=== PATIENT | male | born 1930 | race Caucasian/White ===

== ENCOUNTER 2016-12-19 11:53 | Inpatient (IN) | payer OTHER, MEDICARE ==
--- NOTE | 2016-12-19 12:10 | CPEKG ---
Heart Rate: 65 RR Interval: 923 QRSD Interval: 86 QT Interval: 468 QTC Interval: 487 QRS [place]: 137 T Wave [place]: -18 EKG Severity - ABNORMAL ECG - EKG Impression: ATRIAL FIBRILLATION EKG Impression: LEFT POSTERIOR FASCICULAR BLOCK EKG Impression: ABNORMAL T, CONSIDER ISCHEMIA, INFERIOR LEADS Electronically Signed By: Blake Flores 24-Dec-2016 09:07:12
[2016-12-19] MEDS ORDERED: ASPIRIN 81 MG CHEWABLE TAB PO ONE (12:17)
--- NOTE | 2016-12-19 12:23 | UCPHY ---
H & P Time Seen by Provider: 12/19/16 12:13 Patient Type: New HPI/ROS: CHIEF COMPLAINT: Shortness of breath HISTORY OF PRESENT ILLNESS: Patient is an 86-year-old female with a history of hypertension, diabetes type 2 atrial fibrillation on Coumadin who presents to the emergency department with increasing shortness of breath. Patient states that he has been off of his Coumadin for the past week because he ran out of his prescription. He was having his INR drawn today informed and he had shortness of breath. They sent him to urgent care. The patient states that shortness of breath the past few days. Is mildly worse with ambulation. He denies any chest pain. No new leg pain or swelling. No fevers or chills. No cough. Patient normally takes Coumadin 9 mg p. o. twice daily. REVIEW OF SYSTEMS: My complete review of systems is negative except as mentioned in the HPI. Past Medical/Surgical History: Includes diabetes type 2, atrial fibrillation, Staph, STEPHY PSH: Multiple back surgeries Smoking Status: Never smoked Physical Exam: Vitals noted GENERAL: Well-appearing, in no acute distress, alert. HEENT: Eyes normal to inspection, normal pharynx, no signs of dehydration. NECK: No thyromegaly, no lymphadenopathy, supple. RESPIRATORY: Clear to auscultation bilaterally, no rales, rhonchi or wheezing. CVS: Irregularly irregular, no rubs, murmurs, or gallops. ABDOMEN: Soft, nontender, nondistended, no organomegaly. BACK: Normal to inspection, no CVA tenderness. SKIN: Normal color, no rash, warm, dry. No pallor. Lower extremity skin stasis changes EXTREMITIES: No pedal edema, no calf tenderness, no Homans sign or cords, no joint swelling. NEURO/PSYCH: Alert and oriented x3, normal mood and affect, normal motor sensory exam. No obvious cranial nerve deficit. Constitutional: Initial Vital Signs Temperature (C) 36.7 C 12/19/16 11:59 Heart Rate 70 12/19/16 11:59 Respiratory Rate 16 12/19/16 11:59 Blood Pressure 121/64 H 12/19/16 11:59 O2 Sat (%) 94 12/19/16 11:59 O2 Delivery Mode Nasal Cannula O2 (L/minute) 2 Allergies/Adverse Reactions: ketorolac tromethamine [From Toradol] Allergy (Severe, Verified 12/19/16 11:58) Vomiting morphine Allergy (Severe, Verified 12/19/16 11:58) Vomiting Home Medications: Medication Instructions Recorded Acetaminophen [Tylenol XS 500mg] 1,000 mg PO Q6PRN PRN 05/25/11 Atorvastatin Calcium [Lipitor 10 10 mg PO DAILY 05/25/11 mg] CELECOXIB [Celebrex] 200 mg PO DAILY 05/25/11 Ferrous Sulfate 325 mg PO 05/25/11 Glucosamine HCl [GLUCOSAMINE HCL] 1,500 mg PO DAILY 05/25/11 Hydrochlorothiazide [HCTZ (*)] 25 mg PO DAILY 05/25/11 Metoprolol Tartrate [Lopressor] 50 mg PO BID 05/25/11 PIOGLITAZONE HCL [Actos] 45 mg PO DAILY 05/25/11 WARFARIN SODIUM [Coumadin] 5 mg PO DAILY 05/25/11 metFORMIN HCL [Glucophage 500 mg 500 mg PO BID 05/25/11 (*)] oxyCODONE/APAP 5/325 [Percocet 1 tab PO Q4H PRN 05/25/11 5/325] Medical Decision Making - Diagnostics Imaging Results: Imaging Impressions Chest X-Ray 12/19/16 12:17 Impression: 1. Findings consistent with congestive heart failure are noted superimposed upon presumed underlying COPD. 2. See above report for additional findings.. ED Course/Re-evaluation: In urgent care I met the patient on arrival. Answered all his questions. I discussed the plan. Patient had laboratory studies EKG and chest x-ray ordered. IV the patient's previous medical record. EKG: Atrial fibrillation. Normal axis. Left posterior fascicular block. I reviewed the patient's laboratory studies. He had numerous abnormalities. His D-dimer was elevated at 0.89. His creatinine was elevated 1.6. His troponin was elevated at 0.59. His creatinine is mildly elevated at 1.6[place] [address] I discussed the results with the patient. Answered all his questions. I discussed the case with the hospitalist service. Dr. Geller will admit. Patient will be transferred to [facility]. I discussed the elevated D-dimer. With mild elevated creatinine I was reticent to order a CT angiogram. I discussed this with the hospitalist service. Patient will be further evaluated at the [facility]. Ambulance company was contacted for transfer. Differential Diagnosis: My differential includes but is not limited to ACS, acute SC, DVT, PE, dissection, aneurysm, dehydration, electrolyte abnormality, sugar abnormality, CHF - Data Points Laboratory Results: Laboratory Results 12/19/16 12:25 12/19/16 12:25 12/19/16 12/19/16 12/19/16 12:25 12:25 12:25 WBC 5.36 10^3/uL 10^3/uL (3.80-9.50) RBC 3.27 10^6/uL L 10^6/uL (4.40-6.38) Hgb 10.8 g/dL L g/dL (13.7-17.5) Hct 33.5 % L % (40.0-51.0) MCV 102.4 fL H fL (81.5-99.8) MCH 33.0 pg pg (27.9-34.1) MCHC 32.2 g/dL L g/dL (32.4-36.7) RDW 15.9 % H % (11.5-15.2) Plt Count 182 10^3/uL 10^3/uL (150-400) MPV 9.3 fL fL (8.7-11.7) Neut % (Auto) 76.9 % H % (39.3-74.2) Lymph % (Auto) 12.7 % L % (15.0-45.0) [place] % (Auto) 8.0 % % (4.5-13.0) Eos % (Auto) 1.3 % % (0.6-7.6) Baso % (Auto) 0.7 % % (0.3-1.7) Nucleat RBC Rel Count 0.0 % % (0.0-0.2) Absolute Neuts (auto) 4.12 10^3/uL 10^3/uL (1.70-6.50) Absolute Lymphs (auto) 0.68 10^3/uL L 10^3/uL (1.00-3.00) Absolute Monos (auto) 0.43 10^3/uL 10^3/uL (0.30-0.80) Absolute Eos (auto) 0.07 10^3/uL 10^3/uL (0.03-0.40) Absolute Basos (auto) 0.04 10^3/uL 10^3/uL (0.02-0.10) Absolute Nucleated RBC 0.00 10^3/uL 10^3/uL (0-0.01) Immature Gran % 0.4 % % (0.0-1.1) Immature Gran # 0.02 10^3/uL 10^3/uL (0.00-0.10) PT 23.4 SEC H SEC (12.0-15.0) INR 2.11 H (0.83-1.16) APTT 35.1 SEC SEC (23.0-38.0) D-Dimer 0.89 ug/mLFEU H ug/mLFEU (0.00-0.50) Sodium 139 mEq/L mEq/L (134-144) Potassium 5.4 mEq/L H mEq/L (3.5-5.2) Chloride 102 mEq/L mEq/L (97-110) Carbon Dioxide 21 mEq/l L mEq/l (22-31) Anion Gap 16 mEq/L mEq/L (8-16) BUN 45 mg/dL H mg/dL (7-23) Creatinine 1.6 mg/dL H mg/dL (0.7-1.3) Estimated GFR 41 Glucose 114 mg/dL H mg/dL (70-100) Calcium 9.6 mg/dL mg/dL (8.5-10.4) Troponin I 0.053 ng/mL H ng/mL (0-0.034) NT-Pro-B Natriuret Pep 62728 pg/mL H pg/mL (0-450) Medications Given: Discontinued Medications Aspirin (Aspirin) 324 mg PO EDNOW ONE Stop: 12/19/16 12:18 Last Admin: 12/19/16 12:40 Dose: 324 mg Departure - Departure Disposition: [facility] Inpatient Acute Clinical Impression: Elevated troponin, Renal insufficiency Dyspnea Qualifiers: Dyspnea type: shortness of breath Qualified Code(s): R06.02 - Shortness of breath CHF (congestive heart failure) Qualifiers: Congestive heart failure type: unspecified congestive heart failure type Congestive heart failure chronicity: acute Qualified Code(s): I50.9 - Heart failure, unspecified Condition: Good Referrals: Mor Clements MD [Primary Care Provider] - As per Instructions - PQRS PQRS Measurement: 134: Depression screening and followup, PRIME MD-PHQ2 (12 years and older) Over the last 2 weeks, how often have you been bothered by any of the following problems? 1. Feeling down, depressed, or hopeless? 2. Little interest or pleasure in doing things? Patient answered no to both 1 and 2 130: Documentation of medications. Reviewed all patient medications, doses, route and frequency. Unable to obtain meds due to patient did not know. 226: Do you smoke? No. 47: 65 and older: Advanced care planning. Patient designates surrogate decision maker as parent spouse . Patient refused. 51: 18 years old and older with diagnosis of COPD, spirometry performance. Patient has no history of COPD 52: 18 years old and older with COPD and symptoms of COPD or FEV1<60% predicted prescribed a B Agonist. Spirometry not performed; equipment not available.
[2016-12-19 12:30] LABS: % IMMATURE GRANULYOCYTES 0.4 % (0.0-1.1); ABSOLUTE IMMATURE GRANULOCYTES 0.02 10^3/uL (0.00-0.10); ADD DIFF? NO; ADD MORPH? NO; ADD SCAN? NO; ATYPICAL LYMPHOCYTE FLAG 10 (0-99); FRAGMENT RBC FLAG 0 (0-99); HEMATOCRIT 33.5 % (40.0-51.0); HEMOGLOBIN 10.8 g/dL (13.7-17.5); LEFT SHIFT FLG 0 (0-99); LIPEMIA HEMOLYSIS FLAG 80 (0-99); MEAN CELL HEMOGLOBIN CONCENTR. 32.2 g/dL (32.4-36.7); MEAN CELL VOLUME 102.4 fL (81.5-99.8); MEAN PLATELET VOLUME 9.3 fL (8.7-11.7); PLATELET CLUMPS FLAG 0 (0-99); PLATELET COUNT 182 10^3/uL (150-400); RED BLOOD CELL COUNT 3.27 10^6/uL (4.40-6.38); RED CELL DISTRIBUTION WIDTH 15.9 % (11.5-15.2)
[2016-12-19 12:42] LABS: APTT 35.1 SEC (23.0-38.0); INR 2.11 (0.83-1.16); PROTIME(PATIENT) 23.4 SEC (12.0-15.0)
[2016-12-19 12:44] LABS: ANION GAP 16 mEq/L (8-16); CALCIUM 9.6 mg/dL (8.5-10.4); CARBON DIOXIDE 21 mEq/l (22-31); CHLORIDE 102 mEq/L (97-110); CREATININE 1.6 mg/dL (0.7-1.3); GLOMERULAR FILTRATION RATE 41; GLUCOSE 114 mg/dL (70-100); POTASSIUM 5.4 mEq/L (3.5-5.2); SODIUM 139 mEq/L (134-144)
[2016-12-19 13:03] LABS: TROPONIN I 0.053 ng/mL (0-0.034)
[2016-12-19] MEDS ORDERED: ACETAMINOPHEN 325 MG TAB PO PRN (16:32)
[2016-12-19] MEDS ORDERED: ONDANSETRON 4 MG/2 ML VIAL IVP PRN (16:32)
[2016-12-19] MEDS ORDERED: oxyCODONE IR 5 MG TAB PO PRN (16:32)
[2016-12-19] MEDS ORDERED: ALBUTEROL 3 ML DEYVIAL IH PRN (16:32)
[2016-12-19] MEDS ORDERED: ONDANSETRON DISINTEGRATING 4 MG TAB PO PRN (16:32)
[2016-12-19] MEDS ORDERED: D50W 25 GM/50 ML SYR IVP PRN (16:37)
[2016-12-19] MEDS ORDERED: FUROSEMIDE 40 MG/4 ML VIAL IVP ONE (17:27)
[2016-12-19] MEDS ORDERED: WARFARIN SODIUM 3 MG TAB PO ONE (17:30)
[2016-12-19 19:14] LABS: COLOR YELLOW; LEUKOCYTE ESTERASE,URINE NEGATIVE (NEGATIVE); NITRITE,URINE NEGATIVE (NEGATIVE)
--- NOTE | 2016-12-19 19:25 | GHP ---
[f rep st] HISTORY AND PHYSICAL DATE OF ADMISSION: 12/19/2016 CHIEF COMPLAINT: Shortness of breath. HISTORY: This is an 86-year-old man with past medical history of diabetes, pulmonary fibrosis, atrial fibrillation, who presents with worsening shortness of breath and generalized weakness for about the last 3 months that has gotten significantly worse over the last week. The patient denies any significant chest pain associated with this, but he does note that his legs and abdomen seem more swollen. He has had issues with chronic lower extremity edema that he has been on Lasix for but ran out of Lasix for a little over a week ago and has not taken it since then. He has noticed that he gets very short of breath with any kind of exertion for the last several months but especially over the last week. He always has some hypoxia at night and has been continuing to use nocturnal oxygen, but denies being woken with shortness of breath. PAST MEDICAL HISTORY: 1. Type 2 diabetes. 2. Hypertension. 3. 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 4. Osteoarthritis. 5. STEPHY just on oxygen at night. 6. Atrial fibrillation. 7. Chronic kidney disease with baseline creatinine of 1.6. PAST SURGICAL HISTORY: 1. The patient has had multiple knee surgeries. 2. Appendectomy. 3. Back surgery x4. 4. Prostatectomy. 5. Left ankle fusion. 6. Left total knee. 7. Carpal tunnel surgery. SOCIAL HISTORY: Patient is a never smoker. He is . He is accompanied by his daughter and . He previously worked in construction. FAMILY HISTORY: Parents are . REVIEW OF SYSTEMS: 10-point review of systems obtained negative except as per HPI. HOME MEDICATIONS: 1. Lasix. 2. Warfarin. 3. Cyanocobalamin. 4. Warfarin. 5. Doxycycline. 6. Tamsulosin. 7. Metoprolol. 8. Levothyroxine. 9. Metformin. 10. Ferrous sulfate. 11. Atorvastatin. 12. Tylenol. ALLERGIES: Ketorolac and morphine. PHYSICAL EXAM: VITAL SIGNS: BP 151/85, heart rate 63, respiratory rate 19, O2 sats 99% on 3 L, temperature 36.6. GENERAL APPEARANCE: An elderly man. He is awake and alert. He is in no acute distress. EYES: Anicteric. HENT: Oropharynx clear. JVD is elevated. CARDIOVASCULAR: Irregularly irregular with a rate in the 60s. No murmurs, rubs, or gallops. PULMONARY: Bibasilar crackles, otherwise, normal work of breathing. ABDOMEN: Soft, nontender, mildly distended. EXTREMITIES: 1+ pitting edema bilateral lower extremities with chronic venous stasis changes. SKIN: Warm, dry, well perfused. NEURO/PSYCH: Oriented, appropriate, pleasant. CLINICAL DATA: Labs reviewed. Significant for white blood cell count 5.36, hematocrit of 33.5, with MCV of 102.4. INR is 2.1. D-dimer is 0.89. Chemistry notable for a creatinine of 1.6. Glucose of 114. Troponin is 0.053, proBNP 23006. Chest x-ray personally reviewed and interpreted shows cardiomegaly, bilateral bibasilar opacities consistent with pleural effusion and pulmonary edema. EKG personally reviewed and interpreted shows AFib and inferior T-wave inversions. Rate is in the 60s. ASSESSMENT AND PLAN: 86-year-old man presenting with shortness of breath in the setting of being off Lasix for a week with presumed decompensated heart failure. 1. Decompensated congestive heart failure. The patient has not had an echo since 2012 that I can find, at that time he had a normal ejection fraction and no comment of diastolic dysfunction. At this time he does have both lower extremity edema and pulmonary edema in the setting of being off Lasix for a week consistent with decompensated, likely diastolic, heart failure. Will start IV Lasix, monitor intake and output and daily weights. Cardiology has been consulted. His BNP is quite elevated, though I do not have a prior baseline. In terms of etiology of his congestive heart failure, suspect that it is related to being off his medications, but will trend serial troponins, monitor on telemetry, and obtain echocardiogram in the morning as well as check TSH and UA. 2. Elevated troponin. In the setting of above, I suspect this is more likely demand rather than acute coronary syndrome given the absence of chest pain or concerning ecg changes, but will trend troponins and monitor on telemetry as well as eval for new wall motion abnormality on echo 3. Chronic atrial fibrillation. INR is currently therapeutic. He is rate controlled on metoprolol. We will continue Coumadin and metoprolol. 4. Chronic kidney disease. This seems to be at baseline. 5. Diabetes. He is on metformin as an outpatient, which is likely unsafe given his degree of renal dysfunction. This will be discontinued and started on a sliding scale. Given the patient's renal function has remained at this level for quite some time, I do not think he should be resumed on metformin at discharge. 6. Hypoxia. The patient is 99% on 3 L. We can likely wean this down. At baseline he is on oxygen only at night related to STEPHY. 7. Obstructive sleep apnea. Continue nocturnal oxygen. 8. History of pulmonary fibrosis. This has been followed by Dr. Self of Pulmonology and has been stable. 9. Macrocytic anemia. Continue his vitamin B12. DISPOSITION: Observation status. Suspect he will need less than 48 hours stay for evaluation and management of decompensated heart failure though he may require a longer stay depending on his response to Lasix. Patient is new to my care. Old records reviewed, summarized as per HPI and past medical history. Further history obtained from patient's and daughter present at bedside. Care plan reviewed with ER physician including plans for diuresis. /[id number]/MODL MTDD
[2016-12-19 20:10] LABS: TROPONIN I 0.054 ng/mL (0-0.034)
[2016-12-19] MEDS: INSULIN LISPRO 100 UNIT/ML SC SCH (20:11)
[2016-12-19] MEDS: DOXYCYCLINE HYCLATE 100 MG CAP/TAB PO SCH (20:41)
[2016-12-19] MEDS: ACETAMINOPHEN 500 MG TAB PO SCH (20:41)
[2016-12-19] MEDS: METOPROLOL TARTRATE 100 MG TAB PO SCH (20:42)
[2016-12-19] MEDS: FERROUS SULFATE 325 MG TAB PO SCH (20:42)
[2016-12-20 04:33] LABS: % IMMATURE GRANULYOCYTES 0.3 % (0.0-1.1); ABSOLUTE IMMATURE GRANULOCYTES 0.01 10^3/uL (0.00-0.10); ADD DIFF? NO; ADD MORPH? NO; ADD SCAN? NO; ATYPICAL LYMPHOCYTE FLAG 0 (0-99); FRAGMENT RBC FLAG 0 (0-99); HEMATOCRIT 30.1 % (40.0-51.0); HEMOGLOBIN 9.6 g/dL (13.7-17.5); LEFT SHIFT FLG 0 (0-99); LIPEMIA HEMOLYSIS FLAG 80 (0-99); MEAN CELL HEMOGLOBIN 32.9 pg (27.9-34.1); MEAN CELL HEMOGLOBIN CONCENTR. 31.9 g/dL (32.4-36.7); MEAN CELL VOLUME 103.1 fL (81.5-99.8); MEAN PLATELET VOLUME 9.8 fL (8.7-11.7); PLATELET CLUMPS FLAG 10 (0-99); PLATELET COUNT 142 10^3/uL (150-400); RED BLOOD CELL COUNT 2.92 10^6/uL (4.40-6.38); RED CELL DISTRIBUTION WIDTH 15.6 % (11.5-15.2)
[2016-12-20 04:53] LABS: ANION GAP 9 mEq/L (8-16); CALCIUM 9.7 mg/dL (8.5-10.4); CARBON DIOXIDE 23 mEq/l (22-31); CHLORIDE 106 mEq/L (97-110); CREATININE 1.6 mg/dL (0.7-1.3); GLOMERULAR FILTRATION RATE 41; GLUCOSE 110 mg/dL (70-100); MAGNESIUM 2.2 mg/dL (1.6-2.3); POTASSIUM 4.9 mEq/L (3.5-5.2); SODIUM 138 mEq/L (134-144)
--- NOTE | 2016-12-20 08:43 | PDCARCONS ---
Cardiology Consult Reason for Consult: Congestive heart failure Chief Complaint: shortness of breath and pedal edema Requesting Physician: Dr. Noemy Geller History of Present Illness: 86-year-old male, usually followed by Dr. Kash Clements for primary care and Dr. Shashank Dickinson for cardiology. He was in his usual state of health for the last week . He did not take his Lasix for 1 week because his mail order pharmacy did not send to him on time according to him. He presented with gradually worsening shortness of breath and pedal edema. He states that in July of 2016 his Lasix dose was decreased and since then he had been slightly more short of breath than usual. He denies any chest pain . He tells me that he has had a coronary angiogram at [facility] within the last 5 years that was normal. He has not had a syncopal episode. History Information - Allergies/Home Medication List Allergies/Adverse Reactions: ketorolac tromethamine [From Toradol] Allergy (Severe, Verified 12/19/16 11:58) Vomiting morphine Allergy (Severe, Verified 12/19/16 11:58) Vomiting Home Medications: Acetaminophen [Tylenol ES 500 mg (*)] 1,000 mg PO HS 12/19/16 [Last Taken ] Atorvastatin Calcium [Lipitor 10 mg (*)] 10 mg PO DAILY 12/19/16 [Last Taken ] Cyanocobalamin [Vitamin B12 (*)] 1,000 mcg PO DAILY 12/19/16 [Last Taken Unknown ] Doxycycline Hyclate [Vibramycin 100 MG (*)] 100 mg PO BID 12/19/16 [Last Taken 12/19/16] Ferrous Sulfate [Ferrous Sulf 325 MG (*)] 325 mg PO HS 12/19/16 [Last Taken ] Furosemide [Lasix 20 MG (*)] 60 mg PO BIDDIUR 12/19/16 [Last Taken 12/19/16] Herbals/Supplements -Info Only 1 ea PO DAILY 12/19/16 [Last Taken Unknown] Levothyroxine [Synthroid 25 mcg (*)] 25 mcg PO DAILY 12/19/16 [Last Taken Unknown] Metoprolol Tartrate [Lopressor 100 mg (*)] 100 mg PO BID 12/19/16 [Last Taken ] Tamsulosin HCl [Flomax 0.4 MG (*)] 0.4 mg PO DAILY 12/19/16 [Last Taken 12/19/16 ] Warfarin Sodium [Coumadin 3MG (*)] 3 mg PO SUTUTHFRSA@2100 12/19/16 [Last Taken 12/19/16] Warfarin Sodium [Coumadin 3MG (*)] 6 mg PO MOWE@2100 12/19/16 [Last Taken ] metFORMIN HCL [Metformin HCl] 1,000 mg PO BIDMEAL 12/19/16 [Last Taken 12/19/16] I have personally reviewed and updated: medical history - Past Medical History atrial fibrillation, diabetes type 2, hypertension, hyperlipidemia Additional medical history: pulmonary fibrosis related to asbestos exposure. renal insufficiency - Surgical History Reports: cholecystectomy Additional surgical history: Ankle repair. Appendectomy. Back surgery. Cholecystectomy. Colon Polypectomy 05/2009, 2011 Tubular adenoma. Five year follow-up recommended. Dilatation of Schatzki's Ring. EGD 2011 Esophageal ulcer. Melanoma Excision -- on back. Transurethral resection of the prostate 2004 - Social History Smoking Status: Never smoked Physical Exam Temp Pulse Resp BP Pulse Ox 36.9 C 61 16 132/86 H 97 12/20/16 07:22 12/20/16 07:22 12/20/16 07:22 12/20/16 07:22 12/20/16 07:22 O2 (L/minute) 3 Constitutional: no apparent distress Eyes: PERRL, EOMI Cardiovascular: irregularly irregular Respiratory: no respiratory distress, reduced air movement Gastrointestinal: soft, non-tender abdomen Skin: warm Neurologic: AAOx3 Psychiatric: interacting appropriately, not anxious Lab and Imaging 12/20/16 03:44 12/20/16 03:44 WBC 3.81 10^3/uL (3.80-9.50) 12/20/16 03:44 RBC 2.92 10^6/uL (4.40-6.38) L 12/20/16 03:44 Hgb 9.6 g/dL (13.7-17.5) L 12/20/16 03:44 Hct 30.1 % (40.0-51.0) L 12/20/16 03:44 MCV 103.1 fL (81.5-99.8) H 12/20/16 03:44 MCH 32.9 pg (27.9-34.1) 12/20/16 03:44 MCHC 31.9 g/dL (32.4-36.7) L 12/20/16 03:44 RDW 15.6 % (11.5-15.2) H 12/20/16 03:44 Plt Count 142 10^3/uL (150-400) L 12/20/16 03:44 MPV 9.8 fL (8.7-11.7) 12/20/16 03:44 Neut % (Auto) 62.4 % (39.3-74.2) 12/20/16 03:44 Lymph % (Auto) 20.5 % (15.0-45.0) 12/20/16 03:44 [place] % (Auto) 13.9 % (4.5-13.0) H 12/20/16 03:44 Eos % (Auto) 2.1 % (0.6-7.6) 12/20/16 03:44 Baso % (Auto) 0.8 % (0.3-1.7) 12/20/16 03:44 Nucleat RBC Rel Count 0.0 % (0.0-0.2) 12/20/16 03:44 Absolute Neuts (auto) 2.38 10^3/uL (1.70-6.50) 12/20/16 03:44 Absolute Lymphs (auto) 0.78 10^3/uL (1.00-3.00) L 12/20/16 03:44 Absolute Monos (auto) 0.53 10^3/uL (0.30-0.80) 12/20/16 03:44 Absolute Eos (auto) 0.08 10^3/uL (0.03-0.40) 12/20/16 03:44 Absolute Basos (auto) 0.03 10^3/uL (0.02-0.10) 12/20/16 03:44 Absolute Nucleated RBC 0.00 10^3/uL (0-0.01) 12/20/16 03:44 Immature Gran % 0.3 % (0.0-1.1) 12/20/16 03:44 Immature Gran # 0.01 10^3/uL (0.00-0.10) 12/20/16 03:44 PT 23.4 SEC (12.0-15.0) H 12/19/16 12:25 INR 2.11 (0.83-1.16) H 12/19/16 12:25 APTT 35.1 SEC (23.0-38.0) 12/19/16 12:25 D-Dimer 0.89 ug/mLFEU (0.00-0.50) H 12/19/16 12:25 Sodium 138 mEq/L (134-144) 12/20/16 03:44 Potassium 4.9 mEq/L (3.5-5.2) 12/20/16 03:44 Chloride 106 mEq/L (97-110) 12/20/16 03:44 Carbon Dioxide 23 mEq/l (22-31) 12/20/16 03:44 Anion Gap 9 mEq/L (8-16) 12/20/16 03:44 BUN 50 mg/dL (7-23) H 12/20/16 03:44 Creatinine 1.6 mg/dL (0.7-1.3) H 12/20/16 03:44 Estimated GFR 41 12/20/16 03:44 Glucose 110 mg/dL (70-100) H 12/20/16 03:44 Calcium 9.7 mg/dL (8.5-10.4) 12/20/16 03:44 Phosphorus 4.5 mg/dL (2.5-4.5) 12/20/16 03:44 Magnesium 2.2 mg/dL (1.6-2.3) 12/20/16 03:44 Troponin I 0.057 ng/mL (0-0.034) H 12/19/16 23:15 NT-Pro-B Natriuret Pep 09464 pg/mL (0-450) H 12/19/16 12:25 TSH 3.360 uIU/mL (0.465-4.680) 12/19/16 18:35 Urine Color YELLOW 12/19/16 18:34 Urine Appearance CLEAR 12/19/16 18:34 Urine pH 5.0 (5.0-7.5) 12/19/16 18:34 Ur Specific [place] 1.011 (1.002-1.030) 12/19/16 18:34 Urine Protein NEGATIVE (NEGATIVE) 12/19/16 18:34 Urine Ketones NEGATIVE (NEGATIVE) 12/19/16 18:34 Urine Blood NEGATIVE (NEGATIVE) 12/19/16 18:34 Urine Nitrate NEGATIVE (NEGATIVE) 12/19/16 18:34 Urine Bilirubin NEGATIVE (NEGATIVE) 12/19/16 18:34 Urine Urobilinogen NEGATIVE EU (0.2-1.0) 12/19/16 18:34 Ur Leukocyte Esterase NEGATIVE (NEGATIVE) 12/19/16 18:34 Ur Culture Indicated? NOT INDICATED (NI) 12/19/16 18:34 Urine Glucose NEGATIVE (NEGATIVE) 12/19/16 18:34 Visualized and Interpreted Chest x-ray results: Yes Visualized and Interpreted EKG results: Yes EKG additional interpertation: atrial fibrillation with controlled ventricular response, no acute ST or T-wave changes suggestive of myocardial infarction. Telemetry: atrial fibrillation with ventricular pauses of to 2.2 seconds. A/P Assessment: 1. Atrial fibrillation 2. Congestive heart failure related to nonadherence with medications 3. Hypertension 4. Hyperlipidemia 5. Diabetes mellitus 6. renal insufficiency 7. pulmonary fibrosis related to asbestos exposure Plan: This is a very pleasant 86-year-old male usually followed by Dr. Clements and Dr. Shashank Dickinson (Cardiology [facility]). He is presenting with congestive heart failure symptoms related to not taking his Lasix for 1 week. He got intravenous Lasix yesterday and has had complete resolution of his pedal edema and significant improvement in his shortness of breath. Given his renal insufficiency we are going to stop his intravenous diuretics this morning is start him on his home dose of Lasix which is 60 mg p. o. twice daily. We will check an echocardiogram. Borderline elevation of troponin is related to renal insufficiency and congestive heart failure. He has no chest pain. EKGs do not suggest any acute ST or T-wave changes suggestive of myocardial infarction. No further troponin should be checked. No evaluation for coronary artery disease is necessary at this time, he tells me that he had a coronary angiogram in July of 2016 and we will obtain this record for review from [facility]. Thank you for consultation. We will sign off for now, please call us if there are any further questions.
[2016-12-20] MEDS ORDERED: FUROSEMIDE 40 MG/4 ML VIAL IVP SCH (09:00)
[2016-12-20] MEDS: INSULIN LISPRO 100 UNIT/ML SC SCH ×3 (09:03→17:15)
[2016-12-20] MEDS: FUROSEMIDE 20 MG TAB PO SCH ×2 (10:29→15:11)
[2016-12-20] MEDS: DOXYCYCLINE HYCLATE 100 MG CAP/TAB PO SCH ×2 (10:30→20:32)
[2016-12-20] MEDS: TAMSULOSIN HCL 0.4 MG CAP PO SCH (10:31)
[2016-12-20] MEDS: CYANO/VITAMIN B12 1000 MCG TAB PO SCH (10:31)
[2016-12-20] MEDS: ATORVASTATIN CALCIUM 10 MG TAB PO SCH (10:31)
[2016-12-20] MEDS: LEVOTHYROXINE 25 MCG TAB PO SCH (10:31)
[2016-12-20] MEDS: METOPROLOL TARTRATE 100 MG TAB PO SCH ×2 (10:31→20:31)
--- NOTE | 2016-12-20 10:46 | ECHO ---
[id number] + + [address] : : [place] [address] : : [phone] + + Adult Echocardiographic Report + -------+ :Name: HORACIO ADAMS LStudy Date: 12/20/2016 09:50 AM : : Hospital Admission Number: [id number] Locati on: 203: :: 1930 Gender: Male Height: 73 in : :Age: 86 yrs Race: WH,White Weight: 260 lb : :Reason For Study: CHF : : BSA: 2.4 meter s2 : + -------+ MMode/2D Measurements \T\ Calculations IVSd: 1.4 cm RVDd: 6.4 cm FS: 44.4 % LVOT diam: 2.1 cm LVPWd: 1.2 cm LVIDd: 4.2 cm EDV(Teich): LVOT area: LVIDs: 2.3 cm 77.4 ml 3.6 cm2 ESV(Teich): 18.5 ml EF(Teich): 76.1 % LVLd ap4: 7.8 cm SV(MOD-sp4): EDV(MOD-sp4): 48.0 ml 70.0 ml LVLs ap4: 6.8 cm ESV(MOD-sp4): 22.0 ml EF(MOD-sp4): 68.6 % Normal Measurement Values: + + :LVIDd (3.5-5.7cm) IVSd (0.6-1.1cm) LVPWd (0.6-1.1cm) Aortic Root (2.0-3.7cm)Left Atrium (1.5-4.0cm): :LV Vol(d) (76-115ml) LV Vol(s) (29-48ml) Ejec Fraction (50-65%)PV Abdulkadir (0.6- 1.2m/s) TV Abdulkadir (0.4-1.0m/s) : :MV E Abdulkadir (0.8-1.0m/s)MV A Abdulkadir (0.3-1.0m/s)LVOT Abdulkadir (0.7-1.2m/s) Asc Ao Abdulkadir ( 0.9-1.8m/s) : + + Doppler Measurements \T\ Calculations MV E max abdulkadir: MV V2 mean: Ao mean PG: LV V1 max: 122.8 cm/sec 67.0 cm/sec 4.4 mmHg 86.9 cm/sec MV dec time: MV mean PG: Ao V2 mean: LV V1 max P.18 sec 2.2 mmHg 99.7 cm/sec 3.0 mmHg MV V2 VTI: 25.5 cm Ao V2 VTI: 25.6 cm LV V1 mean PG: MVA(VTI): 2.7 cm2 JUANIS(I,D): 2.7 cm2 1.7 mmHg LV V1 mean: 60.5 cm/sec LV V1 VTI: 18.9 cm MR max abdulkadir: SV(LVOT): 68.4 ml TR max abdulkadir: 489.6 cm/sec 389.3 cm/sec MR max P.9 mmHg TR max P.6 mmHg RAP systole: 15.0 mmHg RVSP(TR): 75.6 mmHg Left Ventricle The left ventricle is normal in size. There is mild concentric left ventricular hypertrophy. Ejection Fraction = 67%. There is Doppler evidence for diastolic dysfunction. No regional wall motion abnormalities noted. Right Ventricle The right ventricle is moderately dilated. The right ventricular systolic function is mild to moderately reduced. Atria The left atrium is mildly dilated. The Left Atrial Volume is 39.4 ml/m2. The right atrium is severely dilated. The interatrial septum is intact with no evidence for an atrial septal defect. Mitral Valve The mitral valve is normal in structure and function. There is no mitral valve stenosis. There is trace to mild mitral regurgitation. Tricuspid Valve The tricuspid valve is normal in structure and function. There is no tricuspid stenosis. There is mild tricuspid regurgitation. Right ventricular systolic pressure is 75mmHg. There is Doppler evidence for severe pulmonary hypertension. Aortic Valve The aortic valve is not well visualized. There is no aortic stenosis. Trace aortic regurgitation. Pulmonic Valve The pulmonic valve is not well visualized. trace to mild pulmonic valvular regurgitation. Great Vessels The aortic root is not well visualized. Pericardium/Pleural There is no pericardial effusion. There is a fat pad seen. Conclusion A complete two-dimensional transthoracic echocardiogram was performed (2D, M-mode, Doppler and color flow Doppler). Limited Parasternal images due to difficulty breathing. There is mild concentric left ventricular hypertrophy. Ejection Fraction = 67%. There is Doppler evidence for diastolic dysfunction. The right ventricle is moderately dilated. The right atrium is severely dilated. There is mild tricuspid regurgitation. Right ventricular systolic pressure is 75mmHg. SEVERE PULMONARY HYPERTENSION. Final Reading Physician: Ben Carver MD electronically signed on 12/20/2016 10:45 AM Ordering Physician: Noemy Geller Performed By: Aaliyah Flores
--- NOTE | 2016-12-20 13:55 | HOSPPROG ---
Hospitalist Progress Note Assessment/Plan: # acute Diastolic heart failure- presumed secondary to medication noncompliance - oxygen saturations 95% on 3 L chest x-ray (personally reviewed and interpreted) shows pulmonary vascular congestion dyspnea is markedly improved today - echo pending - patient received IV Lasix overnight - will change to p.o. Lasix today # permanent atrial fibrillation- patient on chronic anticoagulation heart rates are stable - continue home meds # CKD - creatinine 1.6 this a.m.- at baseline renal function - continue home meds # indeterminate troponin- patient without chest pain complaints has had recent ischemic evaluation at outside hospital - no additional troponins risk stratification on this visit # prophylaxis on full-dose anticoagulation # diet cardiac # disposition greater than 2 midnights as patient requiring IV diuresis for acute diastolic heart failure I have discussed the case with Cardiology Dr. Carver we will transition patient to p. o. Lasix today and follow diuresis overnight Subjective: feeling better Objective: Vital Signs Temp Pulse Resp BP Pulse Ox 36.8 C 67 20 124/66 H 99 12/20/16 11:16 12/20/16 11:16 12/20/16 11:16 12/20/16 11:16 12/20/16 11:16 Laboratory Results 12/20/16 03:44 12/20/16 03:44 12/19/16 12/20/16 12/21/16 05:59 05:59 05:59 Intake Total 440 Output Total 930 600 Balance -490 -600 PT 23.4 SEC (12.0-15.0) H 12/19/16 12:25 INR 2.11 (0.83-1.16) H 12/19/16 12:25 - Physical Exam Constitutional: appears nourished Eyes: anicteric sclera Ears, Nose, Mouth, Throat: moist mucous membranes Cardiovascular: irregularly irregular Respiratory: no respiratory distress Gastrointestinal: normoactive bowel sounds, soft, non-tender abdomen Genitourinary: no bladder fullness Skin: warm, normal color Musculoskeletal: No asymmetric calves Neurologic: AAOx3 Psychiatric: interacting appropriately, not anxious Lymph, Heme, Immunologic: no cervical LAD ICD10 Worksheet Patient Problems: Problems Problem Status Onset CHF (congestive heart failure) Acute Dyspnea Acute Elevated troponin Acute Renal insufficiency Acute
[2016-12-20] MEDS ORDERED: WARFARIN SODIUM 3 MG TAB PO SCH ×2 (16:00→21:00)
[2016-12-20] MEDS: ACETAMINOPHEN 500 MG TAB PO SCH (20:31)
[2016-12-20] MEDS: FERROUS SULFATE 325 MG TAB PO SCH (20:32)
[2016-12-21 05:00] LABS: INR 2.2 (0.83-1.16); PROTIME(PATIENT) 24.6 SEC (12.0-15.0)
[2016-12-21 05:01] LABS: ANION GAP 10 mEq/L (8-16); CALCIUM 9.5 mg/dL (8.5-10.4); CARBON DIOXIDE 24 mEq/l (22-31); CHLORIDE 105 mEq/L (97-110); CREATININE 1.5 mg/dL (0.7-1.3); GLOMERULAR FILTRATION RATE 44; GLUCOSE 114 mg/dL (70-100); POTASSIUM 4.7 mEq/L (3.5-5.2); SODIUM 139 mEq/L (134-144)
[2016-12-21] MEDS: INSULIN LISPRO 100 UNIT/ML SC SCH ×2 (08:02→13:11)
[2016-12-21] MEDS: LEVOTHYROXINE 25 MCG TAB PO SCH (08:29)
[2016-12-21] MEDS: TAMSULOSIN HCL 0.4 MG CAP PO SCH (08:29)
[2016-12-21] MEDS: ATORVASTATIN CALCIUM 10 MG TAB PO SCH (08:29)
[2016-12-21] MEDS: FUROSEMIDE 20 MG TAB PO SCH (08:29)
[2016-12-21] MEDS: CYANO/VITAMIN B12 1000 MCG TAB PO SCH (08:29)
[2016-12-21] MEDS: METOPROLOL TARTRATE 100 MG TAB PO SCH (08:29)
[2016-12-21] MEDS: DOXYCYCLINE HYCLATE 100 MG CAP/TAB PO SCH (08:29)
[2016-12-21 11:43] VITALS: BP 120/64; PULSE 60; RESP 14; TEMP 98.8; O2SAT 96
--- NOTE | 2016-12-21 13:20 | PDCARPN ---
Cardiology Progress Note Chief Complaint: MR. Alvarado is feeling well this AM. He is back on his out patient dose of Lasix 60 mg po bid. He is neg 1.4 L today. Weight is down approximately 2 Kg over last 24 hours. He is stable for discharge home. Assessment/Plan: Assessment: 1. 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 SOB/BELLAMY and weight gain secondary to non compliance with lasix x one week Plan: -OK to return home on out patient dose of lasix 60 mg bid -Follow up with primary laboratory clerk, Dr. Dickinson 12/21/16 13:18 Reviewed/Discussed With: multidisciplinary team Objective: Vital Signs (8 Hrs) Temp Pulse Resp BP Pulse Ox 12/21/16 11:41 37.1 C 60 14 120/64 96 12/21/16 11:10 85 L 12/21/16 08:00 36.4 C 67 18 132/68 H 98 Intake/Output (24 Hrs) 12/20/16 12/21/16 12/22/16 05:59 05:59 05:59 Intake Total 650 Output Total 1550 Balance -900 Intake: Oral (ml) 650 Output: Urine (ml) 1550 Urinal 1550 Other: Weight 113.9 kg Number of Voids Urinal 2 Result Diagrams: 12/20/16 03:44 12/21/16 04:01 - Physical Exam Constitutional: WDWN, healthy appearing Neurologic: AAOx3, CN II-XII grossly intact Psychiatric: cooperative, interactive, following commands, not anxious ICD10 Worksheet Patient Problems: Problems Problem Status Onset CHF (congestive heart failure) Acute Dyspnea Acute Elevated troponin Acute Renal insufficiency Acute
--- NOTE | 2016-12-21 15:11 | GDS ---
[f rep st] DISCHARGE SUMMARY DISCHARGE DIAGNOSES: Include: 1. Acute diastolic heart failure secondary to medication noncompliance. 2. Acute hypoxic respiratory failure secondary to volume overload. 3. Persistent atrial fibrillation, on anticoagulation. 4. Chronic kidney disease. HISTORY OF PRESENT ILLNESS: This is an 86-year-old male who presents on 12/19/2016 with complaints of shortness of breath. For details of patient's initial presentation, please see the history and p hysical dated 12/19/2016. CONSULTATIVE SERVICES: Include Cardiology. PROCEDURES: On 12/20/2016, patient had a transthoracic echocardiogram that showed ejection fraction of 67% with Doppler evidence of diastolic dysfunction. No segmental wall motion abnormalities were appreciated. HOSPITAL COURSE BY ISSUE: 1. Acute diastolic heart failure. Patient was treated initially with IV Lasix with good diuretic r esponse. After his initial doses, the patient was transitioned to his home dosing of oral Lasix wit h near resolution of his dyspnea on exertion. The patient will be discharged on that same dose 60 m g p.o. b.i.d., to follow in the outpatient setting with his PCP and outpatient power plant supervisor. 2. Acute hypoxic respiratory failure secondary to volume overload. The patient did have confirmed pulmonary edema on chest x-ray imaging. Did have marked improvement in his symptoms during his hosp ital stay and IV diuresis. Again, will be discharging on his home oral dosing. He can follow with his outpatient primary care provider after discharge. 3. CKD. Patient's creatinine is 1.5 the day of his disposition, which is stable, at his baseline. MEDICATIONS: At the time of discharge, please reference medication reconciliation printed on 2016. PENDING STUDIES: At the time of this dictation are none. FOLLOWUP APPOINTMENTS: Include with Dr. Clements in 1-2 weeks' time for post disposition followu p, and with his outpatient power plant supervisor as needed on his normal ongoing schedule. I spent greater than 30 minutes in the planning and coordination of this discharge. /[id number]/MODL
== END 2016-12-21 15:15 | disposition home or self-care (01) | DRG 291 ==
LOC: CED 11:53 → INTOOBSV 13:20 → OBSVTOIN 13:20 → CEDHOLD 13:20 → F2W 15:37 → OBSVTOIN 12-20 14:36
PROVIDERS: ADMIT Internal Medicine; ATTEND Internal Medicine
DX: I50.31 Acute diastolic (congestive) heart failure (principal); J96.01 Acute respiratory failure with hypoxia; Z91.14 Patient's other noncompliance with medication regimen; I12.9 Hypertensive chronic kidney disease with stage 1 through stage 4 chronic kidney disease, or unspecified chronic kidney disease; E11.22 Type 2 diabetes mellitus with diabetic chronic kidney disease; N18.9 Chronic kidney disease, unspecified; I48.1 Persistent atrial fibrillation; J84.10 Pulmonary fibrosis, unspecified; G47.33 Obstructive sleep apnea (adult) (pediatric); D53.9 Nutritional anemia, unspecified; Z79.01 Long term (current) use of anticoagulants
CPT/HCPCS: 71020-PO; 80048-PO; 83880-PO; 84484-PO; 85025-PO; 85378-PO; 85610-PO; 85730-PO; 97116-GP; 97161-GP; 97165-GO; 97535-GO; G0378; G0463-PO; G8978-GP-CI; G8979-GP-CI; G8987-GO-CI; G8988-GO-CI; J1815

== ENCOUNTER → 2017-04-07 | Outpatient (CLI) | payer OTHER, MEDICARE | LOC: CIMAGING 13:17 | PROVIDERS: ATTEND Internal Medicine | DX: J90 Pleural effusion, not elsewhere classified (principal); R59.0 Localized enlarged lymph nodes; R91.8 Other nonspecific abnormal finding of lung field; D35.00 Benign neoplasm of unspecified adrenal gland; R06.02 Shortness of breath; I50.9 Heart failure, unspecified; D50.9 Iron deficiency anemia, unspecified; E03.9 Hypothyroidism, unspecified; E11.9 Type 2 diabetes mellitus without complications; I10 Essential (primary) hypertension; I70.0 Atherosclerosis of aorta | CPT/HCPCS: 71250-PO ==

== ENCOUNTER → 2017-05-05 | Outpatient (CLI) | payer OTHER, MEDICARE | LOC: CIMAGING 10:28 | PROVIDERS: ATTEND Internal Medicine | DX: J90 Pleural effusion, not elsewhere classified (principal); I25.10 Atherosclerotic heart disease of native coronary artery without angina pectoris; E27.9 Disorder of adrenal gland, unspecified; M43.24 Fusion of spine, thoracic region; J92.9 Pleural plaque without asbestos | CPT/HCPCS: 71250-PO ==

== ENCOUNTER → 2017-05-28 | Outpatient (CLI) | payer OTHER, MEDICARE ==
[~2017-05-28] MED LIST: LIDOCAINE 1% 300 MG/30 ML SDV ONE
[2017-05-28 16:05] LABS: LD, PLEURAL FLUID 436 IU/L
== END ==
LOC: FIMAGING 11:50
PROVIDERS: ATTEND Internal Medicine
PROC: 0W993ZZ Drainage of Right Pleural Cavity, Percutaneous Approach (ICD-10-PCS; principal; 2017-05-28)
DX: J90 Pleural effusion, not elsewhere classified (principal)

== ENCOUNTER → 2017-07-07 | Outpatient (CLI) | payer OTHER, MEDICARE | LOC: FLAB 11:29 | PROVIDERS: ATTEND Physician Assistant Surgical | DX: S12.120D Other displaced dens fracture, subsequent encounter for fracture with routine healing (principal); S13.150A Subluxation of C4/C5 cervical vertebrae, initial encounter; M50.31 Other cervical disc degeneration, high cervical region ==